=== PATIENT | male | born 1975 | race Hispanic/Latino ===

== ENCOUNTER 2020-10-17 19:27 | Inpatient (IN) | payer OTHER ==
[2020-10-17 19:54] LABS: BASOPHILS % (AUTO) 0.2 % (0.0-5.0); EOSINOPHILS % (AUTO) 0.3 % (0.0-8.0); HEMATOCRIT 31.3 % (42-54); LYMPHOCYTES % (AUTO) 14.4 % (21.0-51.0); MEAN CORPUSCULAR HEMOGLOBIN 27.5 pg (27.0-33.0); MEAN CORPUSCULAR HGB CONC 28.8 g/dL (32.0-36.0); MEAN CORPUSCULAR VOLUME 95.7 fL (79-99); MONOCYTES % (AUTO) 4.8 % (3.0-13.0); NEUTROPHILS % (AUTO) 79.7 % (40.0-77.0); PLATELET COUNT (AUTO) 294 K/uL (130-400); RED BLOOD CELL COUNT(AUTO) 3.27 MIL/uL (4.50-6.20); WHITE BLOOD COUNT (AUTO) 13.2 K/uL (4.8-10.8)
[2020-10-17] MEDS ORDERED: ACETAMINOPHEN 325 MG TAB ONE (19:55)
[2020-10-17 20:06] LABS: INR 1.03 (0.85-1.15)
[2020-10-17 20:28] LABS: ABG HCO3 21.2 mmol/L (21.0-28.0); ABG OXYGEN SATURATION 78.7 % (95.0-99.0); ABG PCO2 43 mmHg (35-48)
[2020-10-17 21:08] LABS: CREATININE 3.4 mg/dL (0.5-1.5); POTASSIUM 5.5 mmol/L (3.5-5.1)
[2020-10-17 21:15] LABS: ALBUMIN 2.3 g/dL (3.5-5.0); BILIRUBIN,TOTAL 0.3 mg/dL (0.2-1.0); TOTAL PROTEIN, SERUM 7.8 g/dL (6.0-8.3)
[2020-10-17] MEDS ORDERED: CEFTRIAXONE SODIUM 1 GM ONE (21:16)
[2020-10-17] MEDS ORDERED: AZITHROMYCIN 500MG+NS 250ML 250 ML IV ONE (21:16)
[2020-10-17] MEDS ORDERED: SODIUM POLYSTYRENE SULFONATE 15 GM/60 ML ML ONE (21:58)
[2020-10-17] MEDS ORDERED: DEXTROSE 50%-WATER 50 ML DISP.SYRIN IV ONE (21:59)
[2020-10-17] MEDS ORDERED: SODIUM BICARB 50MEQ 50ML VIAL 50 ML ONE (21:59)
[2020-10-17] MEDS ORDERED: CALCIUM GLUCONATE 1 GM/10 ML VIAL IV ONE (21:59)
[2020-10-17] MEDS ORDERED: INSULIN HUMULIN R 100 UNIT/ML 3ML ONE (22:00)
[2020-10-17] MEDS ORDERED: SODIUM CHLORIDE 0.9% 100 ML IV ONE (22:01)
[2020-10-17] MEDS ORDERED: CEFTRIAXONE SODIUM 1 GM IV SCH (22:15)
[2020-10-17] MEDS ORDERED: ERGOCALCIFEROL (VITAMIN D2) 50,000 UNIT CAPSULE PO ONE (22:15)
[2020-10-17] MEDS ORDERED: ONDANSETRON HCL 4 MG/2 ML VIAL IV PRN (22:15)
[2020-10-17] MEDS ORDERED: AZITHROMYCIN 500MG+NS 250ML 250 ML IV SCH (22:15)
[2020-10-17] MEDS ORDERED: ACETAMINOPHEN 325 MG TAB PO PRN ×2 (22:15)
[2020-10-17] MEDS ORDERED: LACTULOSE 20 GM/30 ML UDCUP PO PRN (22:15)
[2020-10-17] MEDS ORDERED: HEPARIN SODIUM 5000UNIT/ML 1ML VIAL ONE (22:51)
[2020-10-17] MEDS ORDERED: ALBUTEROL INHALER 90MCG/INH IH PRN (23:00)
[2020-10-17 23:15] LABS: APPEARANCE,URINE Cloudy (CLEAR); BILIRUBIN,URINE Negative (NEGATIVE); COLOR,URINE Yellow (YELLOW); GLUCOSE, URINE (UA) 500 mg/dL (NEGATIVE); KETONES,URINE Negative (NEGATIVE); LEUKOCYTE ESTERASE ,URINE Small (NEGATIVE); NITRATE,URINE Negative (NEGATIVE); OCCULT BLOOD,URINE Moderate (NEGATIVE); PROTEIN,URINE >=1000 mg/dL (NEGATIVE); UROBILINOGEN,URINE 0.2 mg/dL (0.2-1.0)
[2020-10-17] MEDS ORDERED: ACETAMINOPHEN EXTRA STRENGTH 500 MG TABLET ONE (23:23)
[2020-10-17 23:34] LABS: BACTERIA,URINE Few /HPF (None Seen); SQUAMOUS EPITHELIAL CELL,UR 0-2 /HPF (0-2); WBC,URINE 51-100 /HPF (0-1)
[2020-10-17 23:35] LABS: HYALINE CASTS, URINE 0-1 /LPF (0-1 /LPF)
[2020-10-18 04:32] LABS: AMPHET/METH SCREEN,URINE NEGATIVE (NEGATIVE); BARBITURATE SCREEN, URINE NEGATIVE (NEGATIVE); BENZODIAZEPINES SCREEN,URINE NEGATIVE (NEGATIVE); CANNABINOID SCREEN,URINE POSITIVE (NEGATIVE); COCAINE SCREEN,URINE NEGATIVE (NEGATIVE); OPIATE SCREEN,URINE NEGATIVE (NEGATIVE); PHENCYCLIDINE SCREEN,URINE NEGATIVE (NEGATIVE)
[2020-10-18] MEDS ORDERED: SODIUM POLYSTYRENE SULFONATE 15 GM/60 ML ML PO SCH (05:00)
[2020-10-18 05:15] LABS: BASOPHILS % (AUTO) 0.2 % (0.0-5.0); HEMATOCRIT 28.2 % (42-54); LYMPHOCYTES % (AUTO) 6.4 % (21.0-51.0); MEAN CORPUSCULAR HEMOGLOBIN 27.2 pg (27.0-33.0); MEAN CORPUSCULAR VOLUME 97.2 fL (79-99); NEUTROPHILS % (AUTO) 86.9 % (40.0-77.0); PLATELET COUNT (AUTO) 287 K/uL (130-400); RED CELL DISTRIBUTION WIDTH 15.3 % (11.0-15.5); WHITE BLOOD COUNT (AUTO) 14.9 K/uL (4.8-10.8)
[2020-10-18 05:43] LABS: PLATELET MORPHOLOGY PLT CLUMPS PRESENT
[2020-10-18 05:52] LABS: CREATININE 3.5 mg/dL (0.5-1.5); MAGNESIUM 1.9 mg/dL (1.80-2.40)
[2020-10-18] MEDS ORDERED: ERGOCALCIFEROL (VITAMIN D2) 50,000 UNIT CAPSULE ONE (06:20)
[2020-10-18] MEDS ORDERED: SODIUM POLYSTYRENE SULFONATE 15 GM/60 ML ML ONE ×2 (06:20→13:58)
[2020-10-18] MEDS ORDERED: INSULIN HUMULIN R 100 UNIT/ML 3ML SQ SCH (07:30)
[2020-10-18] MEDS ORDERED: ASCORBIC ACID 500 MG TAB PO SCH (09:00)
[2020-10-18] MEDS ORDERED: HEPARIN SODIUM 5000UNIT/ML 1ML VIAL SQ SCH (09:00)
[2020-10-18] MEDS ORDERED: ZINC SULFATE 220 CAPSULE PO SCH (09:00)
[2020-10-18] MEDS ORDERED: FAMOTIDINE 20MG TAB 20 MG TAB PO SCH (09:00)
[2020-10-18] MEDS ORDERED: ASCORBIC ACID 500 MG TAB ONE (09:30)
[2020-10-18] MEDS ORDERED: FAMOTIDINE 20MG TAB 20 MG TAB ONE (09:31)
[2020-10-18] MEDS ORDERED: HEPARIN SODIUM 5000UNIT/ML 1ML VIAL ONE ×2 (09:31→20:22)
[2020-10-18] MEDS ORDERED: ZINC SULFATE 220 CAPSULE ONE ×2 (09:31→09:38)
[2020-10-18] MEDS ORDERED: ASPIRIN 81MG TAB.CHEW ONE (09:37)
[2020-10-18] MEDS ORDERED: DEXAMETHASONE SOD PHOSPHATE 10MG/ML 1ML VIAL ONE (09:38)
[2020-10-18] MEDS ORDERED: POLYETHYLENE GLYCOL 3350 17 GM POWD.PACK ONE (09:39)
[2020-10-18] MEDS ORDERED: INSULIN HUMULIN R 100 UNIT/ML 3ML ONE ×3 (09:40→18:13)
[2020-10-18] MEDS ORDERED: ENOXAPARIN SODIUM 120 MG/0.8ML SQ ONE (09:40)
--- NOTE | 2020-10-18 12:37 | NUR ---
[facility] CONSULT Patient assessed by [facility] team. See Inpatient Wound Assessment. Assessment and recommendations discussed with primary nurse. Orders entered. Education provided. Addendum: 10/18/20 at 1238 by ALEJANDRA HAYNES LVN LVN W Amended: Links added.
[2020-10-18] MEDS ORDERED: FUROSEMIDE 10 MG/ML 4ML VIAL ONE ×2 (13:58→20:21)
[2020-10-18] MEDS ORDERED: FUROSEMIDE 10 MG/ML 4ML VIAL IVP SCH (14:00)
[2020-10-18 15:01] LABS: CREATININE 3.5 mg/dL (0.5-1.5); POTASSIUM 4.4 mmol/L (3.5-5.1)
--- NOTE | 2020-10-18 16:50 | NUR ---
DC PLAN NO ANSWER TO CALL. Addendum: 10/18/20 at 1650 by MELISSA SINHA RN CM Amended: Links added.
[2020-10-18] MEDS ORDERED: ACETAMINOPHEN 325 MG TAB ONE (19:18)
[2020-10-18] MEDS ORDERED: CEFTRIAXONE SODIUM 1 GM ONE (20:21)
[2020-10-18] MEDS ORDERED: AZITHROMYCIN 500MG+NS 250ML 250 ML IV ONE (20:21)
[2020-10-18 20:39] LABS: ABG BASE EXCESS -5.3 mmol/L (-2.0-3.0); ABG PCO2 44 mmHg (35-48)
[2020-10-19 08:06] LABS: BASOPHILS % (AUTO) 0.1 % (0.0-5.0); EOSINOPHILS % (AUTO) 0.6 % (0.0-8.0); HEMATOCRIT 27.6 % (42-54); MEAN CORPUSCULAR HEMOGLOBIN 27.4 pg (27.0-33.0); MEAN CORPUSCULAR HGB CONC 29.7 g/dL (32.0-36.0); MEAN CORPUSCULAR VOLUME 92.3 fL (79-99); MONOCYTES % (AUTO) 5.6 % (3.0-13.0); NEUTROPHILS % (AUTO) 77.8 % (40.0-77.0); PLATELET COUNT (AUTO) 300 K/uL (130-400); RED BLOOD CELL COUNT(AUTO) 2.99 MIL/uL (4.50-6.20); WHITE BLOOD COUNT (AUTO) 8.8 K/uL (4.8-10.8)
[2020-10-19 08:26] LABS: MAGNESIUM 1.8 mg/dL (1.80-2.40); POTASSIUM 3.3 mmol/L (3.5-5.1)
[2020-10-19] MEDS ORDERED: ASCORBIC ACID 500 MG TAB ONE (09:17)
[2020-10-19] MEDS ORDERED: FAMOTIDINE/PF 20 MG/2 ML VIAL IV ONE (09:18)
[2020-10-19] MEDS ORDERED: HEPARIN SODIUM 5000UNIT/ML 1ML VIAL ONE ×2 (09:18→21:22)
[2020-10-19] MEDS ORDERED: ZINC SULFATE 220 CAPSULE ONE (09:18)
[2020-10-19] MEDS ORDERED: IRON SUCROSE COMPLEX 100 MG in SODIUM CHLORIDE 0.9% 50 ML IV SCH (09:58)
[2020-10-19] MEDS ORDERED: COMPOUND IV MISC 1 EACH IVSOLN MISC PRN (10:00)
[2020-10-19 10:27] LABS: % IRON SATURATION 9.2 % (30-44)
[2020-10-19 10:37] LABS: ALBUMIN 1.8 g/dL (3.5-5.0); MAGNESIUM 1.8 mg/dL (1.80-2.40); PHOSPHORUS 6.1 mg/dL (2.5-4.9); THYROID STIMULATING HORMONE 2.73 uIU/mL (0.36-3.74); URIC ACID 9.9 mg/dL (2.6-7.2)
[2020-10-19 10:40] LABS: ABG BASE EXCESS -0.7 mmol/L (-2.0-3.0); ABG HCO3 24.7 mmol/L (21.0-28.0); ABG OXYGEN SATURATION 95.1 % (95.0-99.0); ABG PCO2 43 mmHg (35-48)
[2020-10-19] MEDS ORDERED: TRAMADOL HCL 50 MG TABLET ONE (10:41)
[2020-10-19 10:55] LABS: CRP QUANTITATIVE 153.2 mg/L (0.00-9.0)
[2020-10-19 11:51] LABS: CREATININE 2.9 mg/dL (0.5-1.5); POTASSIUM 3.4 mmol/L (3.5-5.1)
[2020-10-19] MEDS ORDERED: FUROSEMIDE 10 MG/ML 4ML VIAL ONE (14:59)
--- NOTE | 2020-10-19 17:46 | NUR ---
INITIAL SW spoke with patient. He states he lives alone. Patient has [facility] who comes in daily for wound care. Patient also has [facility] 27 hours a week. No DME. Patient states he is able to complete ADL's independently and drives. PCP is MD at [facility] in [place]. Pharmacy is [facility] in [place]. DCP is home. Addendum: 10/19/20 at 1748 by EDWIN VALENTE SS Amended: Links added.
--- NOTE | 2020-10-19 17:48 | NUR ---
EMERGENCY CONTACT & CORRECT ADDRESS Peggytr Rodrigezalo (friend) [phone] Correct address: [address] [place] [address]. [facility] [address] [place], [place]
[2020-10-19] MEDS ORDERED: INSULIN HUMULIN R 100 UNIT/ML 3ML ONE (18:04)
[2020-10-19] MEDS ORDERED: INSULIN GLARGINE 100 UNITS/ML 10 ML VIAL SQ SCH (21:00)
[2020-10-19] MEDS ORDERED: CEFTRIAXONE SODIUM 1 GM ONE (21:22)
[2020-10-20] MEDS ORDERED: FUROSEMIDE 10 MG/ML 4ML VIAL ONE (06:39)
[2020-10-20 07:29] LABS: BASOPHILS % (AUTO) 0.1 % (0.0-5.0); EOSINOPHILS % (AUTO) 1.7 % (0.0-8.0); HEMATOCRIT 29.4 % (42-54); LYMPHOCYTES % (AUTO) 24.1 % (21.0-51.0); MEAN CORPUSCULAR HGB CONC 29.9 g/dL (32.0-36.0); MEAN CORPUSCULAR VOLUME 90.2 fL (79-99); MONOCYTES % (AUTO) 6.1 % (3.0-13.0); NEUTROPHILS % (AUTO) 67.3 % (40.0-77.0); PLATELET COUNT (AUTO) 350 K/uL (130-400); RED BLOOD CELL COUNT(AUTO) 3.26 MIL/uL (4.50-6.20); RED CELL DISTRIBUTION WIDTH 14.7 % (11.0-15.5); WHITE BLOOD COUNT (AUTO) 7.1 K/uL (4.8-10.8)
[2020-10-20 07:56] LABS: HEMOGLOBIN A1C 6.9 % (4.0-6.0)
[2020-10-20] MEDS ORDERED: ASCORBIC ACID 500 MG TAB ONE (08:05)
[2020-10-20] MEDS ORDERED: FAMOTIDINE 20MG TAB 20 MG TAB ONE (08:06)
[2020-10-20] MEDS ORDERED: HEPARIN SODIUM 5000UNIT/ML 1ML VIAL ONE (08:07)
[2020-10-20] MEDS ORDERED: ZINC SULFATE 220 CAPSULE ONE (08:07)
[2020-10-20 08:17] LABS: ALBUMIN 1.9 g/dL (3.5-5.0); CREATININE 2.5 mg/dL (0.5-1.5); CRP QUANTITATIVE 156.3 mg/L (0.00-9.0)
[2020-10-20 08:19] LABS: B-TYPE NATRIURETIC PEPTIDE 395 pg/mL (0-100)
[2020-10-20] MEDS ORDERED: IRON SUCROSE COMPLEX 100 MG in SODIUM CHLORIDE 0.9% 50 ML IV SCH (09:00)
[2020-10-20] MEDS ORDERED: TRAMADOL HCL 50 MG TABLET ONE (09:12)
[2020-10-20 09:23] LABS: POTASSIUM 2.9 mmol/L (3.5-5.1)
[2020-10-21] MEDS ORDERED: EPOETIN ALFA-EPBX (ESRD) 10,000 UNIT/ML VIAL SQ SCH (21:00)
== END 2020-10-20 11:15 | disposition left against medical advice (07) | DRG 682 ==
LOC: EDH 19:27 → EDHIP 19:28
PROVIDERS: ADMIT Internal Medicine; ATTEND Internal Medicine
DX: N17.9 Acute kidney failure, unspecified (principal); J18.9 Pneumonia, unspecified organism; J96.01 Acute respiratory failure with hypoxia; M62.82 Rhabdomyolysis; I13.0 Hypertensive heart and chronic kidney disease with heart failure and stage 1 through stage 4 chronic kidney disease, or unspecified chronic kidney disease; E87.1 Hypo-osmolality and hyponatremia; G89.29 Other chronic pain; F31.9 Bipolar disorder, unspecified; F41.9 Anxiety disorder, unspecified; E87.5 Hyperkalemia; E66.9 Obesity, unspecified; N49.3 Fournier gangrene; E11.51 Type 2 diabetes mellitus with diabetic peripheral angiopathy without gangrene; F41.1 Generalized anxiety disorder; N49.2 Inflammatory disorders of scrotum; N18.9 Chronic kidney disease, unspecified; E11.22 Type 2 diabetes mellitus with diabetic chronic kidney disease; E78.5 Hyperlipidemia, unspecified; D63.8 Anemia in other chronic diseases classified elsewhere; R53.81 Other malaise; I50.9 Heart failure, unspecified; Z20.828 Contact with and (suspected) exposure to other viral communicable diseases; Z89.411 Acquired absence of right great toe
CPT/HCPCS: 36415; 36600; 70450; 71045; 71250; 74176; 76770; 80048; 80053; 80305; 81001; 82040; 82140; 82550; 82803; 82948; 83036; 83540; 83550; 83605; 83735; 83880; 84100; 84105; 84132; 84145; 84443; 84484; 84550; 85025; 85378; 85610; 85730; 86140; 86900; 86901; 87040; 87077; 87088; 87186; 87426; 87804; 93005; 93970; 94660; G0378; J0456; J0610; J0696; J1100; J1644; J1650; J1756; J1815; J1940; J3490; J7070; U0003